=== PATIENT | male | born 1980 | race Caucasian/White ===

== ENCOUNTER 2017-04-08 09:50 | Emergency (ER) | payer SELFPAY ==
[~2017-04-08] VITALS: Ht 182.9 cm; Wt 68.2 kg
[2017-04-08 10:50] VITALS: BP 115/62
== END 2017-04-08 10:45 | disposition home or self-care (01) ==
LOC: ED 09:50
DX: S51.812A Laceration without foreign body of left forearm, initial encounter (principal); W26.0XXA Contact with knife, initial encounter; Y92.009 Unspecified place in unspecified non-institutional (private) residence as the place of occurrence of the external cause